=== PATIENT | male | born 1950 | race Caucasian/White ===

== ENCOUNTER 2022-05-25 12:30 | Outpatient (CLI) | payer MEDICARE | END 2022-05-25 12:31 | disposition home or self-care (01) | LOC: CSHRAD 12:30 | PROVIDERS: ATTEND Student in an Organized Health Care Education/Training Program | DX: R06.02 Shortness of breath (principal); R73.03 Prediabetes | CPT/HCPCS: 36415; 71046; 80053; 83036; 85025 ==